=== PATIENT | female | born 1995 | race Caucasian/White ===

== ENCOUNTER 2021-07-02 10:22 | Emergency (ER) | payer MEDICAID, SELFPAY ==
[2021-07-02 10:23] VITALS: BP 143/99; PULSE 109; RESP 24; TEMP 37.2; O2SAT 97; BMI 56.3
[2021-07-02 10:25] VITALS: BP 119/57; PULSE 100; RESP 17; TEMP 37.2; O2SAT 97
--- NOTE | 2021-07-02 10:40 | EKG12_ITS ---
Test Reason : Blood Pressure : / mmHG Vent. Rate : 100 BPM Atrial Rate : 100 BPM P-R Int : 116 ms QRS Dur : 092 ms QT Int : 332 ms P-R-T Axes : 048 032 -04 degrees QTc Int : 428 ms Normal sinus rhythm Normal ECG Confirmed by PHI PALACIO, CHRISTINA ([id number]), online content editor MAHSA GRAY ([id number]) on 07/07/2021 10:42:26 AM Referred By: GAGAN Confirmed By:ALICIA YIP MD
--- NOTE | 2021-07-02 10:44 | NURSING ---
NO OLD EKGS
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
--- NOTE | 2021-07-02 11:00 | RAD_ITS ---
STUDY: X-RAY CHEST REASON FOR EXAM: Female, 25 years old. cough TECHNIQUE: AP COMPARISON: None. FINDINGS: EKG leads project over the chest. The lungs are clear and expanded. There is no demonstrated pleural abnormality. Normal size heart. Normal mediastinum and ahmet. Normal visualized pulmonary arteries. Normal visualized aortic arch and descending thoracic aorta. Normal visualized thoracic spine. Normal visualized ribs, clavicles, and shoulders. There is no demonstrated abnormality of the visualized soft tissue structures of the upper abdomen. RAD/Chest 1 View (Portable) IMPRESSION: Nonacute portable x-ray examination of the chest. Electronically Signed: Jose Francisco Beaver MD (Brooks) at 11:52 EDT , Service support ,
[2021-07-02 11:08] VITALS: O2SAT 95
[2021-07-02 11:29] LABS: Absolute Lymphocyte Count 2.28 X10^3/uL (0.83-4.51); Absolute Neutrophil Count 7.5 X10^3/uL (2.0-7.7); Basophil# 0.04 X10^3/uL; Basophil% 0.4 % (0-1); Eosinophil# 0.29 X10^3/uL; Eosinophils% 2.7 % (0-5); Hematocrit 37.1 % (37-47); Hemoglobin 11.1 g/dL (12.0-15.0); Lymphocyte # 2.28 X10^3/ul (0.83-4.51); Lymphocyte % 21.1 % (19-41); Mean Corp Hgb Conc 29.9 g/dL (32-36); Mean Corpuscular Hgb 23.4 pg (27.0-32.0); Mean Corpuscular Volume 78.1 fL (81-99); Mean Platelet Vol. 8.9 fl (6.2-12.0); Monocyte# 0.58 X10^3/uL; Monocyte% 5.4 % (0-10); NRBC Flagged by Analyzer 0 % (0-5); Neutrophil # 7.52 X10^3/uL (2.7-7.7); Neutrophil % 69.7 % (47-70); Platelet Count 264 K/mm3 (150-450); RBC Distribution Width CV 18.4 % (11.6-14.6); RBC Distribution Width SD 51.2 fl (35.1-43.9); Red Blood Count 4.75 M/mm3 (4.2-5.4); White Blood Count 10.8 K/mm3 (4.4-11.0)
[2021-07-02 11:41] LABS: Lactic Acid 1.5 mmol/L (0.4-1.9)
[2021-07-02 11:48] LABS: ALB/GLOB Ratio 0.7 RATIO (0.9-2.4); AST(SGOT) 19 U/L (15-37); Alanine Aminotransfer ALT/SGPT 30 U/L (13-56); Albumin, Serum 3.2 g/dL (3.2-5.0); Alkaline Phosphatase 60 U/L (45-117); Anion Gap 6 (5-15); BUN 13 mg/dL (7-18); BUN/Creat Ratio 20.1 RATIO (10-20); Calcium,Total 8.7 mg/dL (8.5-10.1); Chloride 105 mmol/L (98-107); Creatinine, Serum 0.65 mg/dL (0.55-1.02); EST Glomerular Filtration Rate 119 mL/min (>60); Est Glom Filt Rate - Afr Amer 144 mL/min (>60); Globulin 4.7 g/dL (2.2-4.2); Glucose 108 mg/dL (74-106); Potassium 4.2 mmol/L (3.5-5.1); Protein, Total 7.9 g/dL (6.4-8.2); Sodium Level 138 mmol/L (136-145); Troponin-I HS 7 pg/mL (3.0-54.0)
[2021-07-02 12:07] VITALS: BP 119/57; PULSE 100; RESP 17; O2SAT 97
--- NOTE | 2021-07-02 12:37 | ED.RN ---
Hayley Brito, social media director in room to see pt.
--- NOTE | 2021-07-02 13:02 | CT_ITS ---
STUDY: CTA CHEST REASON FOR EXAM: Female, 25 years old. dyspnea RADIATION DOSAGE (If Supplied By Facility): CTDIvol = ( 29.73 ) mGy, DLP = ( 2041.94 ) mGycm TECHNIQUE: The examination was performed with the intravenous administration of IV 100mL Isovue-370. Post-processing of the angiographic images was performed, with multiplanar reformation and 3D reconstruction. Individualized dose optimization techniques were used for this CT. COMPARISON: None. FINDINGS: There is limited enhancement of the main pulmonary artery and right and left pulmonary arteries. There is limited enhancement of the bilateral peripheral pulmonary arteries. Multiple injection attempts according to technologist documentation. Later sequences show better opacification of the central pulmonary arteries although limited evaluation of peripheral/segmental pulmonary arteries due to inadequate opacification and motion artifact. There is no demonstrated pulmonary embolism. Normal thoracic aorta and visualized great vessels. There is no demonstrated aortic dissection. Normal heart and pericardium. Normal mediastinum. Normal hilar regions. Normal visualized trachea and bronchi. Lungs are underexpanded. Limited assessment due to respiratory motion. No airspace consolidation. Normal pleura. Normal chest wall structures. No destructive bony process. Liver and spleen are enlarged. Hepatic steatosis. CT/CTA Chest W/WO Contrast IMPRESSION: Limited exam. No demonstrated central or obvious segmental pulmonary embolism. Electronically Signed: Jose Francisco Beaver MD (Brooks) at 14:12 EDT , Service support ,
[2021-07-02 13:54] VITALS: BP 108/56; PULSE 87; RESP 18; O2SAT 93
[2021-07-02 16:20] VITALS: BP 108/64; PULSE 78; RESP 16; O2SAT 98
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
== END 2021-07-02 16:27 | disposition home or self-care (01) ==
PROVIDERS: Emergency Provider Student in an Organized Health Care Education/Training Program; PCP Nurse Practitioner Family
DX: R07.89 Other chest pain (principal); R06.02 Shortness of breath
CPT/HCPCS: 71045; 71275; 80053; 83605; 84484; 85025; 87632; 87635; 93005; 96360; 99284; J7040; Q9967; U0005; A4216; U0003